=== PATIENT | female | born 1965 | race Caucasian/White ===

== ENCOUNTER 2016-02-14 17:56 | Emergency (ER) | payer OTHER ==
[~2016-02-14] VITALS: Ht 160 cm; Wt 79.4 kg
[~2016-02-14 17:56] MED LIST: ACETAMINOPHEN-1 EAC1 ORAL; ALEVE220 M2 PO; ANUSOL HC1 SUPP RECTAL; ATARAX25 MG ORAL; COLACE100 MG ORAL; CYCLOBENZAPRINE10 MG ORAL; ELOCON15 GM TP; IBUPROFEN600 MG ORAL; KEFLEX500 MG ORAL; MEDROL DOSEPAK4 MG ORAL; NAPROXEN500 M2 ORAL; POLYTRIM OP SOL10 ML OPHTHALM; TRAMADOL HCL50 MG ORAL
[2016-02-14] MEDS ORDERED: Norco 5mg/325mg tab ORAL ONE (19:00)
[2016-02-14] MEDS ORDERED: TRAMADOL HCL50 MG ORAL (19:22)
[2016-02-14 20:13] VITALS: BP 117/64
--- NOTE | 2016-02-14 22:51 | Emergency Room Report ---
History of Present Illness General Chief Complaint: Pain Source: Patient Present Illness HPI The patient is a 51-year-old female presenting with right foot pain. The patient was seen in this emergency department one week prior and diagnosed with ankle fracture. The patient was placed in a splint and was given a prescription for Motrin. The patient states that the pain has persisted and is an 8/10 dull ache. The patient admits to walking with a splint on and states that it has now become loose. Pt denies numbness/tingling of the extremity Allergies: Coded Allergies: No Known Allergies (Unverified , 05/18/13) Patient History Past Medical History: see triage record Pertinent Family History: none Now: No Reviewed Nursing Documentation: PMH: Agreed, PSxH: Agreed Nursing Documentation-PMH Past Medical History: No History, Except For Review of Systems All Other Systems: negative except mentioned in HPI Physical Exam Vital Signs Date Time Temp Pulse Resp B/P Pulse Ox O2 Delivery O2 Flow Rate FiO2 02/14/16 18:03 98.2 85 14 117/64 99 Room Air Sp02 EP Interpretation: reviewed, normal General Appearance: no apparent distress, alert, GCS 15, non-toxic Head: normocephalic, atraumatic Eyes: bilateral eye PERRL, bilateral eye normal inspection ENT: hearing grossly normal, normal pharynx, no angioedema, normal voice Neck: full range of motion, supple/symm/no masses Musculoskeletal: back normal, digits/nails normal, decreased range of motion - of ankle, swelling - over entire ankle, tender - TTP over calcaneous and ankle Neurologic: alert, oriented x3, responsive, motor strength/tone normal, sensory intact, speech normal Psychiatric: judgement/insight normal, memory normal, mood/affect normal, no suicidal/homicidal ideation Skin: normal color, no rash, warm/dry, well hydrated Procedures Splinting Splinting : Consent: Verbal Location: R leg Hand-Made Type: plaster Splint: poserior short - sugar tong Pre-Proc Neuro Vasc Exam: normal Post-Proc Neuro Vasc Exam: normal Patient Tolerated: Well Complications: None Medical Decision Making PA Attestation Dr. Pope is my supervising physician. Patient management was discussed with my supervising physician Diagnostic Impression: Primary Impression: Avulsion fracture of ankle ER Course The patient is a 51-year-old female presenting with right foot pain. Ddx considered include but not limited to sprain/strain, fracture, contusion PE: Vitals WNL. NAD. R foot: There is edema over the ankle. TTP over bilat malleoli and calcaneus. No discoloration. Limited AROM of ankle. full AROM of toes. DP pulse 2+. SILT. The patient was given Jennings for pain in the ER The splint was removed and a new splint was applied. The patient was also provided crutches and we'll no longer bear weight on the foot. The patient will follow up with primary care physician as soon as possible. ER precautions are given Last Vital Signs Date Time Temp Pulse Resp B/P Pulse Ox O2 Delivery O2 Flow Rate FiO2 02/14/16 20:13 85 14 117/64 99 Room Air 02/14/16 20:13 98.3 Status: improved Disposition: HOME, SELF-CARE Condition: Improved Scripts Tramadol Hcl* (ULTRAM*) 50 Mg Tablet 50 MG ORAL Q6H Y for For Pain, #12 TAB 0 Refills Prov: CARY EMANUEL 02/14/16 Referrals: EMPLOYEE [facility],REFERRIN (PCP) Patient Instructions: Ankle Fracture Additional Instructions: I discussed my findings with the patient. All questions and concerns have been answered. Treatment and medication compliance have been addressed. I advised the patient that they need to follow up with PMD in 3-5 days. Return to ED if pain remains or worsens, numbness or tingling occurs, new rash is noticed, fever is noticed, or if needed for any reason. Patient verbalized understanding of discharge instructions. CARY EMANUEL Feb 14, 2016 22:51
== END 2016-02-14 20:19 | disposition home or self-care (01) ==
LOC: EMR 19:15
DX: S82.891A Other fracture of right lower leg, initial encounter for closed fracture (principal); X58.XXXA Exposure to other specified factors, initial encounter; Y92.9 Unspecified place or not applicable; Y99.8 Other external cause status
CPT/HCPCS: 29515

== ENCOUNTER 2016-02-17 22:58 | Emergency (ER) | payer OTHER ==
[~2016-02-17] VITALS: Ht 157.5 cm; Wt 78.0 kg
[2016-02-17] MEDS ORDERED: NKM (23:14)
[2016-02-17] MEDS ORDERED: HYDROMORPHONE IV ONE (23:30)
[2016-02-17] MEDS ORDERED: NS IV ONE (23:30)
[2016-02-17] MEDS ORDERED: HYDROmorphone 1mg/ml Carpuject ONE (23:36)
[2016-02-17] MEDS ORDERED: NS 55ml IV ONE (23:40)
[2016-02-17 23:43] LABS: EOSINOPHILS % (AUTO) 2.6 % (0.0-3.0); LYMPHOCYTES % (AUTO) 42.4 % (20.0-45.0); MEAN CORPUSCULAR HEMOGLOBIN 29.4 PG (27.0-31.0); MEAN CORPUSCULAR HGB CONC 32.6 G/DL (32.0-36.0); MEAN CORPUSCULAR VOLUME 90 FL (80-99); MEAN PLATELET VOLUME 7.8 FL (6.5-10.1); MONOCYTES % (AUTO) 6.2 % (1.0-10.0); NEUTROPHILS % (AUTO) 47.8 % (45.0-75.0); PLATELET COUNT 248 K/UL (150-450); RED BLOOD COUNT 4.74 M/UL (4.20-5.40); RED CELL DISTRIBUTION WIDTH 11.6 % (11.6-14.8)
--- NOTE | 2016-02-17 23:55 | Emergency Room Report ---
History of Present Illness General Chief Complaint: Abdominal Pain Source: Patient Present Illness HPI Is a 50-year-old female with no significant past medical history. She presents with abdominal pain with profuse diarrhea for the last couple days. Pain is crampy and sharp. Pain is 10 out of 10. She felt nauseous but no vomiting. Nothing made it better and nothing made it worse. Denies any bloody diarrhea. Subjective fever and chills. No sick contact. Allergies: Coded Allergies: CODEINE (Verified Allergy, Unknown, vomiting, 02/17/16) Patient History Past Medical History: see triage record, old chart reviewed Past Surgical History: hysterectomy Pertinent Family History: none Social History: Denies: smoking Last Menstrual Period: n/a Now: No Immunizations: other Reviewed Nursing Documentation: PMH: Agreed, PSxH: Agreed Nursing Documentation-PMH Past Medical History: No History, Except For Review of Systems Eye: Denies: blurred vision, eye pain ENT: Denies: ear pain, nose congestion, throat swelling Respiratory: Denies: cough, shortness of breath Cardiovascular: Denies: chest pain, palpitations Gastrointestinal: Reports: abdominal pain, diarrhea, nausea, Denies: vomiting Musculoskeletal: Denies: back pain, joint pain Skin: Denies: rash Neurological: Denies: headache, numbness Endocrine: Denies: increased thirst, increased urine Hematologic/Lymphatic: Denies: easy bruising All Other Systems: negative except mentioned in HPI Physical Exam Vital Signs Date Time Temp Pulse Resp B/P Pulse Ox O2 Delivery O2 Flow Rate FiO2 02/17/16 23:04 98.2 80 16 123/70 95 Room Air vitals normal Sp02 EP Interpretation: reviewed, normal General Appearance: well appearing, no apparent distress, alert Head: normocephalic, atraumatic Eyes: bilateral eye EOMI, bilateral eye PERRL ENT: hearing grossly normal, normal pharynx Neck: full range of motion, supple, no meningismus Respiratory: chest non-tender, lungs clear, normal breath sounds Cardiovascular #1: regular rate, rhythm, no murmur Gastrointestinal: normal bowel sounds, no mass, no organomegaly, no bruit, non- distended, abnormal bowel sounds - Hyperactive, tenderness - diffuse Musculoskeletal: back normal, gait/station normal, normal range of motion Psychiatric: mood/affect normal Skin: warm/dry Medical Decision Making Diagnostic Impression: Primary Impression: Abdominal pain, vomiting, and diarrhea ER Course Patient presents with abdominal pain with nausea and diarrhea. Most likely a gastroenteritis that has been going through the community. Patient is feeling better now. No evidence of obstruction or acute abdomen. We'll discharge home. Lab Results Impression labs normal Last Vital Signs Date Time Temp Pulse Resp B/P Pulse Ox O2 Delivery O2 Flow Rate FiO2 02/17/16 23:04 98.2 80 16 123/70 95 Room Air Status: improved Disposition: HOME, SELF-CARE Condition: Stable Scripts Ondansetron (Zofran) 4 Mg Tablet 4 MG ORAL Q6H Y for Nausea & Vomiting, #10 TAB 0 Refills Prov: PIPPA SCHMID M.D. 02/18/16 Ibuprofen* (MOTRIN*) 600 Mg Tablet 600 MG ORAL THREE TIMES A DAY, #20 TAB 0 Refills Prov: PIPPA SCHMID M.D. 02/18/16 Referrals: EMPLOYEE [facility],REFERRIN (PCP) Additional Instructions: Followup with your DrLuther in 2-3 days. Push fluids. Return for increasing pain, fever, chills, or any concern. PIPPA SCHMID M.D. Feb 17, 2016 23:55
[2016-02-18 00:02] VITALS: BP 127/56
[2016-02-18 00:04] LABS: CARBON DIOXIDE 27 mEQ/L (20-30)
[2016-02-18 00:05] LABS: ALANINE AMINOTRANSFERASE 27 U/L (3-33); ALBUMIN/GLOBULIN RATIO 1.2 (1.0-2.7); ANION GAP 12 (5-15); ASPARTATE AMINO TRANSFERASE 19 U/L (5-40); CALCIUM 9.9 mg/dL (8.6-10.2); CHLORIDE 97 mEQ/L (98-107); CREATININE 0.9 mg/dL (0.5-0.9); GLOMERULAR FILTRATION RATE > 60 mL/min (>60); HEMOLYSIS 8; LIPASE 46 U/L (< 60); POTASSIUM 3.9 mEQ/L (3.4-4.9); SODIUM 136 mEQ/L (135-145); TOTAL PROTEIN 7.1 g/dL (6.6-8.7)
[2016-02-18 00:29] LABS: APPEARANCE,URINE CLEAR; KETONES,URINE NEGATIVE (NEGATIVE); LEUKOCYTE ESTERASE ,URINE NEGATIVE (NEGATIVE); NITRITE,URINE NEGATIVE (NEGATIVE); PH,URINE 7 (4.5-8.0); PROTEIN,URINE NEGATIVE (NEGATIVE); UROBILINOGEN,URINE NORMAL MG/DL (0.0-1.0)
[2016-02-18] MEDS ORDERED: IBUPROFEN600 MG ORAL (00:41)
[2016-02-18] MEDS ORDERED: ZOFRAN4 MG ORAL (00:41)
[2016-02-18] MEDS ORDERED: Ketorolac 30mg Inj IV ONE (01:00)
[2016-02-18 01:38] VITALS: BP 127/69
[2016-02-18 02:03] VITALS: BP 127/69
--- NOTE | 2016-02-19 10:29 | Diagnostic Imaging Report ---
Indication: Abdominal pain Technique: Continuous helical transaxial imaging of the abdomen and pelvis was obtained from the lung bases to the pubic symphysis during intravenous contrast administration. Coronal 2-D reformats were also obtained. Study obtained in a Siemens sensation [address] Total Dose length Product (DLP): [address] Dose Index Volume (CTDIvol): 25 mGy Comparison: None Findings: Minimal posterior basilar atelectasis demonstrated. Liver is hypodense consistent with fatty infiltration. Spleen is mildly prominent. Gallbladder, pancreas, adrenal glands, kidneys are unremarkable. There is no free fluid or free air. Normal appendix demonstrated. Diverticula noted within the colon. No evidence of bowel obstruction. Impression: Fatty liver. Prominent spleen [facility] has communicated the preliminary results to the Emergency Department. Their findings are largely concordant with this report. The CT scanner at [facility] is accredited by the [employer] and the scans are performed using protocols designed to limit radiation exposure to as low as reasonably achievable to attain images of sufficient resolution adequate for diagnostic evaluation.
== END 2016-02-18 02:15 | disposition home or self-care (01) ==
LOC: EMR 23:39
DX: R10.9 Unspecified abdominal pain (principal); R11.10 Vomiting, unspecified; R19.7 Diarrhea, unspecified; Z88.6 Allergy status to analgesic agent; Z90.710 Acquired absence of both cervix and uterus
CPT/HCPCS: 36415; 74177; 80053; 81003; 83690; 85025; 96361; 96374; 96375; 99284; J1170; J1885; J2405; Q9967

== ENCOUNTER 2016-09-19 18:33 | Emergency (ER) | payer OTHER ==
[~2016-09-19] VITALS: Ht 157.5 cm; Wt 77.1 kg
[~2016-09-19 18:33] MED LIST changes: +NKM; +ZOFRAN4 MG ORAL
[2016-09-19 18:55] VITALS: BP 135/60
[2016-09-19] MEDS ORDERED: Morphine Sulfate 4mg/ml Inj IVP ONE (19:15)
[2016-09-19] MEDS ORDERED: Ketorolac 30mg Inj IV ONE (19:15)
[2016-09-19 20:10] LABS: BASOPHILS % (AUTO) 1.1 % (0.0-2.0); EOSINOPHILS % (AUTO) 2.1 % (0.0-3.0); MEAN CORPUSCULAR HEMOGLOBIN 31.2 PG (27.0-31.0); MEAN CORPUSCULAR HGB CONC 34.5 G/DL (32.0-36.0); MEAN CORPUSCULAR VOLUME 90 FL (80-99); MEAN PLATELET VOLUME 8.8 FL (6.5-10.1); MONOCYTES % (AUTO) 6.9 % (1.0-10.0); PLATELET COUNT 202 K/UL (150-450); RED BLOOD COUNT 4.28 M/UL (4.20-5.40); RED CELL DISTRIBUTION WIDTH 11.3 % (11.6-14.8); WHITE BLOOD COUNT 7.3 K/UL (4.8-10.8)
[2016-09-19 20:24] LABS: TROPONIN I < 0.30 ng/mL (<=0.30)
[2016-09-19 20:27] LABS: ALANINE AMINOTRANSFERASE 44 U/L (3-33); ALBUMIN/GLOBULIN RATIO 1.6 (1.0-2.7); ANION GAP 11 (5-15); ASPARTATE AMINO TRANSFERASE 28 U/L (5-40); CALCIUM 9.7 mg/dL (8.6-10.2); CARBON DIOXIDE 26 mEQ/L (20-30); CHLORIDE 102 mEQ/L (98-107); CREATININE 0.8 mg/dL (0.5-0.9); GLOMERULAR FILTRATION RATE > 60 mL/min (>60); HEMOLYSIS 8; POTASSIUM 4.2 mEQ/L (3.4-4.9); SODIUM 139 mEQ/L (135-145); TOTAL PROTEIN 6.9 g/dL (6.6-8.7)
[2016-09-19 20:38] LABS: CKMB 6.5 ng/mL (< 3.8)
[2016-09-19] MEDS ORDERED: PREDNISONE20 MG ORAL (20:50)
[2016-09-19] MEDS ORDERED: CYCLOBENZAPRINE10 MG ORAL (20:50)
[2016-09-19] MEDS ORDERED: IBUPROFEN600 MG ORAL (20:50)
[2016-09-19] MEDS ORDERED: DIPHENHYDRAMINE25 M1 ORAL (20:50)
[2016-09-19 21:04] VITALS: BP 122/74
--- NOTE | 2016-09-19 22:43 | Emergency Room Report ---
History of Present Illness General Chief Complaint: Pain Source: Patient, Medical Record Present Illness HPI 51-year-old female presents ED complaining of right-sided back pain x3 hours. Notes pain to the right-sided ribs radiating to the back. 10 out of 10. Sharp. Notes pain with deep breaths. Denies recent trauma. Denies chest pain or shortness of breath. Patient also notes a rash to her chest unsure how long it has been there. It is itchy. Denies any known food or drug allergies. No other relieving or relieving factors. Denies any other associated symptoms Allergies: Coded Allergies: CODEINE (Verified Allergy, Unknown, vomiting, 02/17/16) Patient History Past Medical History: none Past Surgical History: none Pertinent Family History: none Social History: Denies: alcohol use, drug use, smoking Now: No Immunizations: UTD Reviewed Nursing Documentation: PMH: Agreed, PSxH: Agreed Nursing Documentation-PMH Past Medical History: No History, Except For Review of Systems All Other Systems: negative except mentioned in HPI Physical Exam Vital Signs Date Time Temp Pulse Resp B/P Pulse Ox O2 Delivery O2 Flow Rate FiO2 09/19/16 18:40 97.9 69 20 120/54 97 Room Air Sp02 EP Interpretation: reviewed, normal General Appearance: no apparent distress, alert, GCS 15, non-toxic Head: normocephalic, atraumatic Eyes: bilateral eye PERRL, bilateral eye normal inspection ENT: hearing grossly normal, normal pharynx, no angioedema, normal voice Neck: full range of motion, supple/symm/no masses Respiratory: lungs clear, normal breath sounds, speaking full sentences, other - R sided posterior rib pain Cardiovascular #1: regular rate, rhythm, no edema Cardiovascular #2: 2+ carotid (R), 2+ carotid (L), 2+ radial (R), 2+ radial (L) , 2+ dorsalis pedis (R), 2+ dorsalis pedis (L) Gastrointestinal: normal bowel sounds, non tender, soft, non-distended, no guarding, no rebound Rectal: deferred Genitourinary: normal inspection, no CVA tenderness Musculoskeletal: back normal, gait/station normal, normal range of motion, non- tender Neurologic: alert, oriented x3, responsive, motor strength/tone normal, sensory intact, speech normal Psychiatric: judgement/insight normal, memory normal, mood/affect normal, no suicidal/homicidal ideation Reflexes: 3+ bicep (R), 3+ bicep (L), 3+ tricep (R), 3+ tricep (L), 3+ knee (R) , 3+ knee (L) Skin: normal color, warm/dry, well hydrated, other - urticarial rash noted to midsternal chest Lymphatic: no adenopathy Medical Decision Making Diagnostic Impression: Primary Impression: Rash Additional Impression: Chest wall pain ER Course Hospital Course 51-year-old female presents ED complaining of reproducible chest wall pain Differential diagnoses include: Rib fracture, RI/unstable angina, contusion, muscle strain Clinical course Patient placed on stretcher. After initial history and physical I ordered labs , EKG, chest x-ray, pain meds. labs reviewed- all electrolytes normal, troponins negative, no leukocytosis, hemoglobin/hematocrit stable Chest x-ray-no cardiomegaly, no rib fracture, no pneumothorax, no acute process EKG - NSR, no acute changes interpreted by me clinical findings consistent with muscle strain. Upon reassessment patient states pain is improved. The rash appears urticarial, will treat as allergic reaction I. I feel this is a highly complex case requiring extensive working including EKG/Rhythm strip, Xray/CT/US, Blood/urine lab work, repeat exams while in ED, and administration of strong opiates/narcotics for pain control, admission to hospital or close patient follow up. Diagnosis - chest wall pain, rash Stable and discharged to home with prescription for Motrin, flexeril, benedryl, prednisone. Instructed to followup with PMD. Return to ED if symptoms recur or worsen Labs Test 09/19/16 19:15 White Blood Count 7.3 K/UL (4.8-10.8) Red Blood Count 4.28 M/UL (4.20-5.40) Hemoglobin 13.3 G/DL (12.0-16.0) Hematocrit 38.6 % (37.0-47.0) Mean Corpuscular Volume 90 FL (80-99) Mean Corpuscular Hemoglobin 31.2 PG (27.0-31.0) Mean Corpuscular Hemoglobin Concent 34.5 G/DL (32.0-36.0) Red Cell Distribution Width 11.3 % (11.6-14.8) Platelet Count 202 K/UL (150-450) Mean Platelet Volume 8.8 FL (6.5-10.1) Neutrophils (%) (Auto) 46.0 % (45.0-75.0) Lymphocytes (%) (Auto) 44.0 % (20.0-45.0) Monocytes (%) (Auto) 6.9 % (1.0-10.0) Eosinophils (%) (Auto) 2.1 % (0.0-3.0) Basophils (%) (Auto) 1.1 % (0.0-2.0) Sodium Level 139 mEQ/L (135-145) Potassium Level 4.2 mEQ/L (3.4-4.9) Chloride Level 102 mEQ/L (98-107) Carbon Dioxide Level 26 mEQ/L (20-30) Anion Gap 11 (5-15) Blood Urea Nitrogen 16 mg/dL (7-23) Creatinine 0.8 mg/dL (0.5-0.9) Estimat Glomerular Filtration Rate > 60 mL/min (>60) Glucose Level 98 mg/dL (74-106) Calcium Level 9.7 mg/dL (8.6-10.2) Total Bilirubin 0.3 mg/dL (0.0-1.2) Aspartate Amino Transf (AST/SGOT) 28 U/L (5-40) Alanine Aminotransferase (ALT/SGPT) 44 U/L (3-33) Alkaline Phosphatase 57 U/L (35-104) Total Creatine Kinase 291 U/L (26-140) Creatine Kinase MB 6.5 ng/mL (< 3.8) Creatine Kinase MB Relative Index 2.2 Troponin I < 0.30 ng/mL (<=0.30) Total Protein 6.9 g/dL (6.6-8.7) Albumin 4.3 g/dL (3.5-5.2) Globulin 2.6 g/dL Albumin/Globulin Ratio 1.6 (1.0-2.7) EKG Diagnostic Results Rate: normal Rhythm: NSR ST Segments: no acute changes ASA given to the pt in ED: No Rhythm Strip Diag. Results EP Interpretation: yes Rhythm: NSR, no PVC's, no ectopy Chest X-Ray Diagnostic Results Chest X-Ray Diagnostic Results : Chest X-Ray Ordered: Yes # of Views/Limited/Complete: 1 View Indication: Chest Pain EP Interpretation: Yes Interpretation: no consolidation, no effusion, no pneumothorax, no acute cardiopulmonary disease Impression: No acute disease Interpreting ER Provider: Electronically signed by Manuelito Lugo MD Last Vital Signs Date Time Temp Pulse Resp B/P Pulse Ox O2 Delivery O2 Flow Rate FiO2 09/19/16 21:04 67 14 122/74 100 Room Air 09/19/16 18:55 97.9 Status: improved Disposition: HOME, SELF-CARE Condition: Stable Scripts Diphenhydramine Hcl* (DIPHENHYDRAMINE HCL*) 25 Mg Capsule 25 MG ORAL Q6H Y for Itching, #30 CAP 0 Refills Prov: MANUELITO LUGO M.D. 09/19/16 Prednisone* (PREDNISONE*) 20 Mg Tablet 40 MG ORAL DAILY, #10 TAB Prov: MANUELITO LUGO M.D. 09/19/16 Cyclobenzaprine Hcl* (FLEXERIL*) 10 Mg Tablet 10 MG ORAL TID Y for Muscle Spasm, #20 TAB Prov: MANUELITO LUGO M.D. 09/19/16 Ibuprofen* (MOTRIN*) 600 Mg Tablet 600 MG ORAL Q8H Y for For Pain, #30 TAB 0 Refills Prov: MANUELITO LUGO M.D. 09/19/16 Referrals: EMPLOYEE [facility],SARAHY (PCP) Patient Instructions: Chest Wall Pain, [id number] MANUELITO LUGO M.D. Sep 19, 2016 22:43
--- NOTE | 2016-09-20 12:38 | Diagnostic Imaging Report ---
Indication: Dyspnea Comparison: 02/04/14 A single view chest radiograph was obtained. Findings: Cardiomediastinal appearance is within normal limits for age. Pulmonary vascularity is appropriate. The diaphragmatic contour is smooth and costophrenic angles are sharp. No pleural effusions are identified. The bones are unremarkable. Impression: No acute findings
== END 2016-09-19 21:07 | disposition home or self-care (01) ==
LOC: EMR 19:20
DX: R21 Rash and other nonspecific skin eruption (principal); R07.89 Other chest pain; Z88.6 Allergy status to analgesic agent
CPT/HCPCS: 36415; 71010; 80053; 82550; 82553; 84484; 85025; 93005; 96374; 96375; 99284; J1885; J2270; J2405

== ENCOUNTER 2016-09-24 21:50 | Emergency (ER) | payer OTHER ==
[~2016-09-24] VITALS: Ht 157.5 cm; Wt 77.1 kg
[~2016-09-24 21:50] MED LIST changes: +DIPHENHYDRAMINE25 M1 ORAL; +PREDNISONE20 MG ORAL
[2016-09-24 22:25] VITALS: BP 130/74
[2016-09-24] MEDS ORDERED: KEFLEX500 MG ORAL (22:40)
[2016-09-24] MEDS ORDERED: KENALOG 0.5% CR15 GM APPLIC (22:40)
--- NOTE | 2016-09-25 00:03 | Emergency Room Report ---
History of Present Illness General Chief Complaint: Skin Rash/Abscess Source: Patient Present Illness HPI 51-year-old female presents to ER complaining of rash. States she was seen here a few days ago for chest wall pain but states she had a rash at that time. Evaluated by the ER physician and was prescribed Benadryl and prednisone. States the rash has since persisted. Has gotten worse. Patient is very itchy. Denies any pain. notes rash over her chest and on bilateral legs. Denies any recent travel or sick contacts. Denies any fevers or chills. Denies any known food allergies. No aggravating relieving factors. Denies any other associated symptoms Allergies: Coded Allergies: CODEINE (Verified Allergy, Unknown, vomiting, 02/17/16) Patient History Past Medical History: none Past Surgical History: none Pertinent Family History: none Social History: Denies: alcohol use, drug use, smoking Last Menstrual Period: NONE Now: No Immunizations: UTD Reviewed Nursing Documentation: PMH: Agreed, PSxH: Agreed Nursing Documentation-PMH Past Medical History: No Stated History Review of Systems All Other Systems: negative except mentioned in HPI Physical Exam Vital Signs Date Time Temp Pulse Resp B/P Pulse Ox O2 Delivery O2 Flow Rate FiO2 09/24/16 22:15 98.2 74 18 132/75 98 Room Air Sp02 EP Interpretation: reviewed, normal General Appearance: no apparent distress, alert, GCS 15, non-toxic Head: normocephalic, atraumatic Eyes: bilateral eye PERRL, bilateral eye normal inspection ENT: hearing grossly normal, normal pharynx, no angioedema, normal voice Neck: full range of motion, supple/symm/no masses Respiratory: chest non-tender, lungs clear, normal breath sounds, speaking full sentences Cardiovascular #1: regular rate, rhythm, no edema Cardiovascular #2: 2+ carotid (R), 2+ carotid (L), 2+ radial (R), 2+ radial (L) , 2+ dorsalis pedis (R), 2+ dorsalis pedis (L) Gastrointestinal: normal bowel sounds, non tender, soft, non-distended, no guarding, no rebound Rectal: deferred Genitourinary: normal inspection, no CVA tenderness Musculoskeletal: back normal, gait/station normal, normal range of motion, non- tender Neurologic: alert, oriented x3, responsive, motor strength/tone normal, sensory intact, speech normal Psychiatric: judgement/insight normal, memory normal, mood/affect normal, no suicidal/homicidal ideation Reflexes: 3+ bicep (R), 3+ bicep (L), 3+ tricep (R), 3+ tricep (L), 3+ knee (R) , 3+ knee (L) Skin: normal color, warm/dry, well hydrated, wu - erythematous rash noted over anterior chest. also noted to bilateral legs Lymphatic: no adenopathy Medical Decision Making Diagnostic Impression: Primary Impression: Rash ER Course Hospital Course 51-year-old female presents to ED with rash to chest and legs Differential diagnoses include: Cellulitis, dermatitis, insect bite, abscess Clinical course Patient placed on stretcher. After initial history, physical exam reveals a female in no acute distress. On exam there are diffuse erythematous rash noted to be anterior chest and spots noted to bilateral shins. I evaluated this patient last week. Patient was here for reproducible chest wall pain but also had this rash of the chest. At that time it was not that significant. There were some erythematous urticarial spots noted. I treated as allergic reaction and prescribed Benadryl and steroids We will prescribe antibiotics and had triamcinolone. Recommend followup with dermatology Diagnosis - rash stable and discharged to home with prescription for triamcinolone, Keflex. Instructed to followup with PMD. Instructed return to ED if symptoms recur or worsen Last Vital Signs Date Time Temp Pulse Resp B/P Pulse Ox O2 Delivery O2 Flow Rate FiO2 09/24/16 22:45 98.4 81 17 130/74 99 Room Air Status: improved Disposition: HOME, SELF-CARE Condition: Stable Scripts Cephalexin* (KEFLEX*) 500 Mg Capsule 500 MG ORAL Q6H, #28 CAP 0 Refills Prov: JONATHAN NAJERA M.D. 09/24/16 Triamcinolone Acet (Triamcinolone Acetonide) 15 Gm Cream..g. 15 GM APPLIC TID, #15 GM Prov: JONATHAN NAJERA M.D. 09/24/16 Referrals: EMPLOYEE [facility],REFERRIN (PCP) Patient Instructions: Rash, Contact Dermatitis, [id number] JONATHAN NAJERA M.D. Sep 25, 2016 00:03
== END 2016-09-24 22:45 | disposition home or self-care (01) ==
LOC: EMR 22:32
DX: R21 Rash and other nonspecific skin eruption (principal); Z88.6 Allergy status to analgesic agent
CPT/HCPCS: 99284

== ENCOUNTER 2016-11-13 14:51 | Emergency (ER) | payer OTHER ==
[~2016-11-13] VITALS: Ht 157.5 cm; Wt 79.4 kg
[~2016-11-13 14:51] MED LIST changes: +KENALOG 0.5% CR15 GM APPLIC
[2016-11-13 14:53] VITALS: BP 131/77
[2016-11-13] MEDS ORDERED: TYLENOL EXTRA500 MG ORAL (15:09)
[2016-11-13 16:17] LABS: BASOPHILS % (AUTO) 1.2 % (0.0-2.0); EOSINOPHILS % (AUTO) 1.7 % (0.0-3.0); LYMPHOCYTES % (AUTO) 48.1 % (20.0-45.0); MEAN CORPUSCULAR HEMOGLOBIN 29.8 PG (27.0-31.0); MEAN CORPUSCULAR HGB CONC 32.9 G/DL (32.0-36.0); MEAN CORPUSCULAR VOLUME 91 FL (80-99); MEAN PLATELET VOLUME 9.3 FL (6.5-10.1); MONOCYTES % (AUTO) 6.6 % (1.0-10.0); NEUTROPHILS % (AUTO) 42.4 % (45.0-75.0); PLATELET COUNT 195 K/UL (150-450); RED BLOOD COUNT 4.52 M/UL (4.20-5.40); RED CELL DISTRIBUTION WIDTH 11.3 % (11.6-14.8); WHITE BLOOD COUNT 7.3 K/UL (4.8-10.8)
[2016-11-13 16:27] LABS: APPEARANCE,URINE CLEAR; KETONES,URINE NEGATIVE (NEGATIVE); LEUKOCYTE ESTERASE ,URINE NEGATIVE (NEGATIVE); NITRITE,URINE NEGATIVE (NEGATIVE); PH,URINE 5 (4.5-8.0); PROTEIN,URINE NEGATIVE (NEGATIVE); UROBILINOGEN,URINE NORMAL MG/DL (0.0-1.0)
[2016-11-13 16:30] LABS: PROTHROMBIN TIME 10.2 SEC (9.30-11.50)
[2016-11-13 16:38] LABS: ALBUMIN/GLOBULIN RATIO 1.6 (1.0-2.7); CALCIUM 9.5 mg/dL (8.6-10.2); POTASSIUM 4.5 mEQ/L (3.4-4.9); TOTAL PROTEIN 6.7 g/dL (6.6-8.7)
[2016-11-13] MEDS ORDERED: Ketorolac 30mg Inj IV ONE (18:00)
[2016-11-13] MEDS ORDERED: MIRALAX119 GM PO (18:06)
[2016-11-13] MEDS ORDERED: NAPROSYN500 M1 ORAL (18:06)
[2016-11-13 18:12] VITALS: BP 126/81
--- NOTE | 2016-11-13 21:49 | Emergency Room Report ---
History of Present Illness General Chief Complaint: Abdominal Pain Source: Patient Present Illness HPI The patient is a 50-year-old female who denies any medical history presenting for abdominal pain. She states that this began today and is described as an 8/ 10 dull ache primarily to the right lower abdomen. She states that she has had constipation on and off for the past week. She denies any other symptoms including nausea, vomiting, fever, chills, back pain, dysuria Allergies: Coded Allergies: CODEINE (Verified Allergy, Unknown, vomiting, 02/17/16) Patient History Past Medical History: see triage record Pertinent Family History: none Reviewed Nursing Documentation: PMH: Agreed, PSxH: Agreed Review of Systems All Other Systems: negative except mentioned in HPI Physical Exam Vital Signs Date Time Temp Pulse Resp B/P (MAP) Pulse Ox O2 Delivery O2 Flow Rate FiO2 11/13/16 14:53 97.5 71 20 131/77 99 Room Air Sp02 EP Interpretation: reviewed, normal General Appearance: no apparent distress, alert, GCS 15, non-toxic Head: normocephalic, atraumatic Eyes: bilateral eye normal inspection, bilateral eye PERRL Respiratory: chest non-tender, lungs clear, normal breath sounds, speaking full sentences Cardiovascular #1: regular rate, rhythm, no edema Gastrointestinal: tenderness - TTP across the RLQ, suprapubic, and LLQ Genitourinary: normal inspection, no CVA tenderness Musculoskeletal: back normal, gait/station normal, normal range of motion, non- tender Neurologic: alert, oriented x3, responsive, motor strength/tone normal, sensory intact, speech normal Psychiatric: judgement/insight normal, memory normal, mood/affect normal, no suicidal/homicidal ideation Skin: normal color, no rash, warm/dry, well hydrated Medical Decision Making PA Attestation Dr. Pope is my supervising physician. Patient management was discussed with my supervising physician Diagnostic Impression: Primary Impression: Abdominal pain Qualified Codes: R10.30 - Lower abdominal pain, unspecified Additional Impressions: Lung nodule Constipation Qualified Codes: K59.00 - Constipation, unspecified ER Course The patient is a 51-year-old female presenting for abdominal pain Differential diagnoses considered include but not limited to gastritis, constipation, diverticulitis, appendicitis, UTI Physical exam: Afebrile. No apparent distress Lungs are clear to auscultation bilaterally Abdomen is soft. Normal bowel sounds. There is tender to palpation across the lower abdomen. No localized tenderness. Nondistended. No hernia Labs are unremarkable. CT scan shows no acute findings There was an incidental finding of an 8 mm nodule in the left lower lobe. Patient was informed of this and needs to follow up with her primary doctor. She'll be treated for constipation. ER precautions are given Last Vital Signs Date Time Temp Pulse Resp B/P (MAP) Pulse Ox O2 Delivery O2 Flow Rate FiO2 11/13/16 18:12 97.5 76 17 126/81 100 Room Air Status: improved Disposition: HOME, SELF-CARE Condition: Improved Scripts Naproxen* (NAPROSYN*) 500 Mg Tablet 500 MG ORAL TWICE A DAY, #30 TAB Prov: CARY EMANUEL 11/13/16 Polyethylene Glycol 3350 (MIRALAX) 119 Gm Powder 17 GM PO DAILY, #119 GM Prov: CARY EMANUEL 11/13/16 Patient Instructions: Abdominal Pain, Adult Additional Instructions: I discussed my findings with the patient. All questions and concerns have been answered. Treatment and medication compliance have been addressed. I advised the patient that they need to follow up with primary doctor in 3-[address] scan shows 8mm nodule on the Left lower lobe of your lung. You will need to follow up with your doctor and have additional testing done. Return to ED if symptoms worsen, new symptoms arise, or if needed for any reason. Patient verbalized understanding of discharge instructions. CARY EMANUEL Nov 13, 2016 21:49
--- NOTE | 2016-11-14 09:50 | Diagnostic Imaging Report ---
Indication: Abdominal pain Technique: Continuous helical transaxial imaging of the abdomen and pelvis was obtained from the lung bases to the pubic symphysis during intravenous contrast administration. Coronal 2-D reformats were also obtained. Study obtained in a Siemens sensation [address] Total Dose length Product (DLP): [address] Dose Index Volume (CTDIvol): 18.16, 0.15 mGy Comparison: 02/18/16 Findings: There is moderate low-attenuation of the liver consistent with fatty infiltration. Pancreas, gallbladder, spleen, adrenal glands are unremarkable. There is a tiny cyst in the left kidney. There is no hydronephrosis. Normal appendix demonstrated. Diverticulosis of the colon demonstrated. There is no evidence of diverticulitis, free fluid, free air identified on this study. Uterus is absent. Urinary bladder is unremarkable in appearance. Small nodule noted at the left lung base measuring about 6-7 mm. Further evaluation in 6 months recommended. Impression: Moderate fatty liver. Normal appendix Diverticulosis of the colon. Status post hysterectomy. Tiny left renal cyst Small lung nodule. Suggest 6 month followup per Fleischner Society criteria. The CT scanner at [facility] is accredited by the [employer] and the scans are performed using dose optimization techniques as appropriate to a performed exam including Automatic Exposure control.
== END 2016-11-13 18:13 | disposition home or self-care (01) ==
LOC: EMR 17:00
DX: R10.9 Unspecified abdominal pain (principal); R91.8 Other nonspecific abnormal finding of lung field; K59.00 Constipation, unspecified; Z88.6 Allergy status to analgesic agent
CPT/HCPCS: 36415; 74177; 80053; 81003; 83690; 85025; 85610; 85730; 96374; 99284; J1885; Q9967

== ENCOUNTER 2017-02-19 19:42 | Emergency (ER) | payer OTHER ==
[~2017-02-19] VITALS: Ht 157.5 cm; Wt 79.4 kg
[~2017-02-19 19:42] MED LIST changes: +MIRALAX119 GM PO; +NAPROSYN500 M1 ORAL; +TYLENOL EXTRA500 MG ORAL
[2017-02-19 20:10] VITALS: BP 128/80
[2017-02-19] MEDS ORDERED: KEFLEX500 MG ORAL (20:26)
[2017-02-19 20:35] VITALS: BP 128/80
--- NOTE | 2017-02-20 14:34 | Emergency Room Report ---
History of Present Illness General Chief Complaint: Eye Problems Source: Patient Present Illness HPI 52 yo F presents to ED c/o R eye pain x 3 days. notes swelling, pain. 5/10 pain, throbbing, nonradiating. denies any discharge. denies any photophobia, blurry vision. No other aggravating factors, denies any other associated symptoms. Allergies: Coded Allergies: CODEINE (Verified Allergy, Unknown, vomiting, 02/17/16) Patient History Past Medical History: none Past Surgical History: none Pertinent Family History: none Social History: Denies: smoking, alcohol use, drug use Last Menstrual Period: menopause Now: No Immunizations: UTD Reviewed Nursing Documentation: PMH: Agreed, PSxH: Agreed Review of Systems All Other Systems: negative except mentioned in HPI Physical Exam Vital Signs Date Time Temp Pulse Resp B/P (MAP) Pulse Ox O2 Delivery O2 Flow Rate FiO2 02/19/17 19:58 98.4 66 18 128/80 96 Room Air Sp02 EP Interpretation: reviewed, normal General Appearance: no apparent distress, alert, GCS 15, non-toxic Head: normocephalic Eyes: bilateral eye normal inspection, bilateral eye PERRL ENT: normal ENT inspection Neck: normal inspection Respiratory: normal inspection Cardiovascular #1: normal inspection Gastrointestinal: normal inspection Rectal: deferred Genitourinary: no CVA tenderness Musculoskeletal: back normal Neurologic: alert, oriented x3, responsive, motor strength/tone normal, sensory intact, speech normal Psychiatric: normal inspection Skin: other - nodular swelling to R eyelid. Lymphatic: normal inspection Medical Decision Making Diagnostic Impression: Primary Impression: Stye Qualified Codes: H00.011 - Hordeolum externum right upper eyelid ER Course Hospital Course 52-year-old female presents to ED with R eye pain, feel something in his eye Differential diagnoses include: conjunctivitis, traumatic iritis, foreign body, corneal abrasion Clinical course Patient placed on stretcher. After initial history and physical exam reveals a nodular swellign to the R upper eyelid. minimal swelling noted. no discharge. no induration. ocular exam unremarkable. consistent with stye Diagnosis - stye Stable and discharged to home with prescription for Keflex. Warm compresses. Followup with PMD/Optho. Return to ED if symptoms recur or worsen Last Vital Signs Date Time Temp Pulse Resp B/P (MAP) Pulse Ox O2 Delivery O2 Flow Rate FiO2 02/19/17 20:35 98.4 66 18 128/80 96 Room Air Status: improved Disposition: HOME, SELF-CARE Condition: Stable Scripts Cephalexin* (KEFLEX*) 500 Mg Capsule 500 MG ORAL Q6H, #28 CAP 0 Refills Prov: JONATHAN NAJERA M.D. 02/19/17 Referrals: [employer] [facility],REFERRIN (PCP) Patient Instructions: JONATHAN Lu M.D. Feb 20, 2017 14:34
== END 2017-02-19 20:45 | disposition home or self-care (01) ==
LOC: EMR 20:36
DX: H00.011 Hordeolum externum right upper eyelid (principal)
CPT/HCPCS: 99283

== ENCOUNTER 2019-03-24 21:46 | Emergency (ER) | payer OTHER ==
[~2019-03-24] VITALS: Ht 157.5 cm; Wt 74.8 kg
[2019-03-24 22:00] VITALS: BP 130/70
--- NOTE | 2019-03-24 22:00 | NUR ---
ED Nurse Note: PT walked in to ED for left sided upper back pain x 3days. denies injury or fall.
[2019-03-24] MEDS ORDERED: IBUPROFEN600 MG ORAL (22:19)
[2019-03-24] MEDS ORDERED: LIDODERM700 M1 TOPIC (22:19)
[2019-03-24] MEDS ORDERED: ROBAXIN-750750 MG PO (22:19)
[2019-03-24] MEDS ORDERED: Ketorolac 30mg Inj IM ONE (22:30)
[2019-03-24] MEDS ORDERED: Methocarbamol 750mg tab ORAL ONE (22:30)
--- NOTE | 2019-03-24 22:36 | NUR ---
ER DISCHARGE NOTE: Patient is cleared to be discharged per ERMD, pt is aox4, on room air, with stable vital signs. pt was given dc and prescription instructions, pt was able to verbalize understanding, pt id band removed without complications. pt is able to ambulate with steady gait. pt took all belongings.
--- NOTE | 2019-03-27 18:24 | Emergency Room Report ---
History of Present Illness General Chief Complaint: Back Pain-No Injury Source: Patient Present Illness HPI Disclaimer: Please note that this report is being documented using DRAGON technology. This can lead to erroneous entry secondary to incorrect interpretation by the dictating instrument. HPI: 54-year-old female presents complaining of left-sided back pain. No injuries reported. Patient states symptoms have been worsening over the past few days. Currently 10/10 and localized in the left side. Prior history of spasm. Pain is centered around the left scapula. No pain no in the cervical thoracic or lumbosacral midline. No history of spinal surgery. Denies numbness , tingling, limitation to range of motion in the extremities. Allergies: Coded Allergies: CODEINE (Verified Allergy, Unknown, vomiting, 02/17/16) Patient History Now: No Review of Systems All Other Systems: negative except mentioned in HPI Physical Exam Vital Signs Date Time Temp Pulse Resp B/P (MAP) Pulse Ox O2 Delivery O2 Flow Rate FiO2 03/24/19 21:51 97.3 68 22 134/68 (90) 92 Room Air General: Awake and alert, no acute distress HEENT: NC/AT. EOMI. Resp: Normal work of breathing MSK: Normal tone and bulk. Moving all extremities. No obvious deformity. Neuro: Awake and alert. Mentating appropriately Back: No tenderness or step-offs in the cervical, thoracic or lumbosacral spine. Mild left-sided paraspinal tenderness. Tenderness over the left trapezius without obvious trigger point and tenderness just below the left scapula. Medical Decision Making Diagnostic Impression: Primary Impression: Back spasm ER Course 54-year-old female presenting for evaluation of left-sided back pain several days duration without focal neuro signs or trauma. Patient's history and physical exam consistent with spasm. She was treated symptomatically with Toradol, Robaxin and apply lidocaine patches. Noted significant improvement in her symptoms. Will discharge on Motrin, continue lidocaine patches and Robaxin. Does not require emergent labs or imaging at this time. She is also provided with instructions on stretching, heat therapy and instructed to follow- up with her PMD. Discussed reasons to return to the emergency department. Last Vital Signs Date Time Temp Pulse Resp B/P (MAP) Pulse Ox O2 Delivery O2 Flow Rate FiO2 03/24/19 22:36 97.8 84 18 122/84 97 Room Air Disposition: HOME, SELF-CARE Condition: Stable Scripts Methocarbamol* (ROBAXIN-750*) 750 Mg Tablet 750 MG PO QID, #28 TAB 0 Refills Prov: Flavio Walter MD 03/24/19 Lidocaine Patch* (Lidoderm Patch*) 1 Each Adh..patch 1 PATCH TOPIC DAILY, #7 PATCH 0 Refills Patch(es) may remain in place for up to 12 hours in any 24-hour period. Prov: Flavio Walter MD 03/24/19 Ibuprofen* (MOTRIN*) 600 Mg Tablet 600 MG ORAL Q8H PRN for For Pain, #30 TAB 0 Refills Prov: Flavio Walter MD 03/24/19 Referrals: NON PHYSICIAN (PCP) [facility] Open 24 hour /7 days a week by Appointment Only [address] [facility] [address] [facility] Patient Instructions: Heat Therapy Additional Instructions: Use the medication as prescribed for treatment of your back spasms. Continue to stretch, soak in warm baths and perform exercises to loosen up the muscles in the back. Follow-up with your primary doctor. Return with any new or worsening symptoms. Flavio Walter MD Mar 27, 2019 18:24
== END 2019-03-24 22:36 | disposition home or self-care (01) ==
LOC: EMR 22:15
DX: M62.830 Muscle spasm of back (principal); Z88.6 Allergy status to analgesic agent
CPT/HCPCS: 96372; J1885; Z7502; 99283

== ENCOUNTER 2019-04-06 17:54 | Emergency (ER) | payer OTHER ==
[~2019-04-06] VITALS: Ht 157.5 cm; Wt 77.1 kg
[~2019-04-06 17:54] MED LIST changes: +LIDODERM700 M1 TOPIC; +ROBAXIN-750750 MG PO
[2019-04-06 18:00] VITALS: BP 122/76
--- NOTE | 2019-04-06 18:00 | NUR ---
ED Nurse Note: Pt walked into ED w/ c/o earache L ear. Pt has pain 10/10 on ear. Pt is alert and orientedx4, ambulatory. Pt denies numbness tingling, nausea or vomiting. Pt has been seen by PA and patient is sitting in bed.
--- NOTE | 2019-04-06 18:31 | Emergency Room Report ---
History of Present Illness General Chief Complaint: Earache Present Illness HPI 54-year-old female with no significant past medical history here complaining of 2 days of left ear pain rating a 10 out of 10 with radiation to left throat. Has not taken medication for symptom relief. Denies any fever and chills, cough and congestion. Denies any recent travel. Is sitting comfortably with stable vital signs. Denies any headache and dizziness, denies vertigo, tinnitus , and no bony tenderness noted over mastoid process Allergies: Coded Allergies: CODEINE (Verified Allergy, Unknown, vomiting, 02/17/16) Patient History Past Medical History: see triage record Past Surgical History: none Pertinent Family History: none Now: No Immunizations: UTD Reviewed Nursing Documentation: PMH: Agreed; PSxH: Agreed Review of Systems All Other Systems: negative except mentioned in HPI Physical Exam Vital Signs Date Time Temp Pulse Resp B/P (MAP) Pulse Ox O2 Delivery O2 Flow Rate FiO2 04/06/19 18:05 97.9 63 20 132/76 (94) 96 Room Air Sp02 EP Interpretation: reviewed, normal General Appearance: no apparent distress, alert, GCS 15, non-toxic Head: normocephalic, atraumatic Eyes: bilateral eye normal inspection, bilateral eye PERRL ENT: EOM grossly intact, normal voice, moist mucus membranes, other - Left TM bulging Neck: full range of motion, no meningismus, no bony tend, supple/symm/no masses , other - Left-sided anterior cervical lymphadenopathy Respiratory: chest non-tender, lungs clear, normal breath sounds, no rhonchi, no respiratory distress, no retraction, no wheezing, speaking full sentences Cardiovascular #1: regular rate, rhythm, no edema, no murmur, normal capillary refill Cardiovascular #2: 2+ carotid (R), 2+ carotid (L) Gastrointestinal: normal bowel sounds, non tender, soft, non-distended, no guarding, no rebound Rectal: deferred Musculoskeletal: back normal Neurologic: alert, motor strength/tone normal, oriented x3, sensory intact, responsive, speech normal Psychiatric: judgement/insight normal, memory normal, mood/affect normal, no suicidal/homicidal ideation Skin: no rash Lymphatic: adenopathy - Left-sided anterior cervical lymphadenopathy Medical Decision Making PA Attestation All my diagnosis and treatment plans were reviewed ad discussed with my supervising physician Dr. Lugo Diagnostic Impression: Primary Impression: Otitis media ER Course 54-year-old female with no significant past medical history here complaining of 2 days of left ear pain rating a 10 out of 10 with radiation to left throat. Has not taken medication for symptom relief. Denies any fever and chills, cough and congestion. Denies any recent travel. Is sitting comfortably with stable vital signs. Denies any headache and dizziness, denies vertigo, tinnitus , and no bony tenderness noted over mastoid process Ddx considered but are not limited to: strep pharyngitis, URI, tonsillitis, peritonsillar abscess, influenza, otitis media, otitis externa, mastoiditis Vital signs: are WNL, pt. is afebrile H&PE are most consistent with: Left-sided otitis media without mastoiditis ORDERS: Cefdinir as patient reports that does not want any amoxicillin, ibuprofen ED INTERVENTIONS: None required at this time. DISCHARGE: At this time pt. is stable for d/c to home. Will provide printed patient care instructions, and any necessary prescriptions. Care plan and follow up instructions have been discussed with the patient prior to discharge. Patient to follow primary doctor for referral to ear nose throat doctor as it is not very usual for an adult her age have otitis media. I did not believe that she has any mastoiditis at this time however advised to return to the emergency room with worsening pain and spreading of pain and inflammation and fever and chills. Last Vital Signs Date Time Temp Pulse Resp B/P (MAP) Pulse Ox O2 Delivery O2 Flow Rate FiO2 04/06/19 18:05 97.9 63 20 132/76 (94) 96 Room Air Disposition: HOME, SELF-CARE Condition: Stable Scripts Ibuprofen* (MOTRIN*) 600 Mg Tablet 600 MG ORAL Q6H PRN for For Pain, #30 TAB 0 Refills Prov: Keily Vigil 04/06/19 Cefdinir (CEFDINIR) 300 Mg Capsule 300 MG PO BID for 10 Days, #20 CAP Prov: Keily Vigil PA 04/06/19 Patient Instructions: Otitis Media, Adult, [id number] Additional Instructions: Take medication as directed, follow-up with your primary care doctor for referral to ear nose throat doctor, if worsening symptoms return to the emergency room. At this time no signs of mastoiditis noted. Keily Vigil Apr 06, 2019 18:31
[2019-04-06] MEDS ORDERED: IBUPROFEN600 MG ORAL (18:33)
[2019-04-06] MEDS ORDERED: CEFDINIR300 MG PO (18:33)
[2019-04-06 18:50] VITALS: BP 124/76
== END 2019-04-06 18:50 | disposition home or self-care (01) ==
LOC: EMR 18:46
DX: H66.92 Otitis media, unspecified, left ear (principal); Z88.6 Allergy status to analgesic agent
CPT/HCPCS: 99282

== ENCOUNTER 2019-06-29 21:09 | Emergency (ER) | payer OTHER ==
[~2019-06-29] VITALS: Ht 157.5 cm; Wt 77.1 kg
[~2019-06-29 21:09] MED LIST changes: +CEFDINIR300 MG PO
[2019-06-29 21:20] VITALS: BP 136/68
--- NOTE | 2019-06-29 21:20 | NUR ---
ED Nurse Note: PT WALKED IN C/O BURNING SENSATION IN THE VAGINAL AREA AFTER APPLYING NAIRS AT 1999. PT STATES BURNING WHEN URINATING. VSS, NAD, AMBULATORY, AAOX4. ERMD AT BEDSIDE. REDNESS NOTED IN VAGINAL AREA UPON EXAMINATION BY DR SANTOS WITH JASON BLACKMON.
--- NOTE | 2019-06-29 21:25 | NUR ---
ED Nurse Note: URINE COLLECTED AND SENT TO LAB
--- NOTE | 2019-06-29 21:33 | Emergency Room Report ---
History of Present Illness General Chief Complaint: Female Urogenital Problems Source: Patient Present Illness HPI Disclaimer: Please note that this report is being documented using DRAGON technology. This can lead to erroneous entry secondary to incorrect interpretation by the dictating instrument. HPI: 54-year-old female presents for evaluation of vaginal irritation. The patient was applying a chemical hair removal agent to her vaginal area and noted significant pain, burning and erythema. She thinks the skin was severely irritated. She rinsed copiously with water. Reported persistent burning. Denied any discharge, significant bleeding, dysuria hematuria prior to application of the chemical hair remover. Allergies: Coded Allergies: CODEINE (Verified Allergy, Unknown, vomiting, 02/17/16) COVID-19 Screening Contact w/high risk pt: No Recent Travel to affected area: No Experienced COVID-19 symptoms?: No COVID-19 Testing performed CAP PARTS CUTTER: No Patient History Last Menstrual Period: na Review of Systems All Other Systems: negative except mentioned in HPI Physical Exam Vital Signs Date Time Temp Pulse Resp B/P (MAP) Pulse Ox O2 Delivery O2 Flow Rate FiO2 06/29/19 21:15 97.7 90 16 130/77 (94) 97 Room Air General: Awake and alert, no acute distress HEENT: NC/AT. EOMI. Resp: Normal work of breathing : Normal-appearing external genitalia. Erythema and tenderness palpation around the inguinal folds and gluteal folds. No blistering, no skin sloughing, negative Nikolsky. No significant erythema over the labia majora. No vaginal discharge. Skin: Intact. No abrasions, laceration or rash over the exposed skin MSK: Normal tone and bulk. Moving all extremities. No obvious deformity. Neuro: Awake and alert. Mentating appropriately Medical Decision Making Diagnostic Impression: Primary Impression: First degree burn of female genitalia Additional Impression: Chemical burn of female genital region ER Course Is a 54-year-old female presenting for evaluation of vaginal irritation after applying a chemical hair removal agent. Patient irrigated prior to arrival in the emergency department. Appears she has a first-degree burn from the chemical exposure but no blistering, signs of infection or burn to the deeper skin is identified. Will apply Silvadene and treat with oral pain medications. Patient will follow-up on an outpatient basis with PMD. We discussed reasons to return to the emergency department. She understands and agrees with treatment plan. Last Vital Signs Date Time Temp Pulse Resp B/P (MAP) Pulse Ox O2 Delivery O2 Flow Rate FiO2 06/29/19 21:15 97.7 90 16 130/77 (94) 97 Room Air Disposition: HOME, SELF-CARE Condition: Stable Scripts Silver Sulfadiazine (SILVER SULFADIAZINE) 50 Gm Cream..g. 5 GM TP BID, #50 GM Prov: Flavio Walter MD 06/29/19 Flavio Walter MD June 29, 2019 21:33
[2019-06-29] MEDS ORDERED: SILVER SULFADIA50 GM TP (21:46)
[2019-06-29 21:55] VITALS: BP 133/68
== END 2019-06-29 21:55 | disposition home or self-care (01) ==
LOC: EMR 21:35
DX: T21.5 Corrosion of first degree of trunk (principal); Y92.9 Unspecified place or not applicable; Z88.6 Allergy status to analgesic agent
CPT/HCPCS: 99282

== ENCOUNTER 2019-12-26 16:26 | Emergency (ER) | payer OTHER ==
[~2019-12-26] VITALS: Ht 167.6 cm; Wt 79.4 kg
[~2019-12-26 16:26] MED LIST changes: +SILVER SULFADIA50 GM TP
--- NOTE | 2019-12-26 17:05 | NUR ---
ED Nurse Note: Pt walked in from home c/o mouth pain that travels to left ear down left arm since yesterday. Respirations even and unlabored on room air. Vitals stable as documented. A+Ox4, speaking in complete sentences.
[2019-12-26 17:10] VITALS: BP 126/79
--- NOTE | 2019-12-26 17:16 | Emergency Room Report ---
History of Present Illness General Chief Complaint: Earache Source: Patient Present Illness HPI 54-year-old female with history of chronic shoulder pain but has already had MRI and follow-up with primary doctor and recurrences of otitis media here complaining of 2 days of left ear pain reported that is exacerbating left shoulder pain. Patient has been taking Advil with minimal relief. Is requesting capsule antibiotics for a year. Denies any fever chills, sore throat, cough and congestion. Denies any water exposure., Denies tinnitus, vertigo, dizziness, headache. Allergies: Coded Allergies: CODEINE (Verified Allergy, Unknown, vomiting, 02/17/16) COVID-19 Screening Contact w/high risk pt: No Recent Travel to affected area: No Experienced COVID-19 symptoms?: No COVID-19 Testing performed FLAME BURNER: No COVID-19 Screening: Negative COVID-19 COVID-19 Testing Source: 3 months ago Patient History Past Medical History: see triage record Past Surgical History: none Pertinent Family History: none Now: No Immunizations: UTD Reviewed Nursing Documentation: PMH: Agreed; PSxH: Agreed Nursing Documentation-PMH Past Medical History: No History, Except For Review of Systems All Other Systems: negative except mentioned in HPI Physical Exam Vital Signs Date Time Temp Pulse Resp B/P (MAP) Pulse Ox O2 Delivery O2 Flow Rate FiO2 12/26/19 16:46 98.2 70 18 122/73 (89) 95 Room Air Sp02 EP Interpretation: reviewed, normal General Appearance: no apparent distress, alert, GCS 15, non-toxic Head: normocephalic, atraumatic Eyes: bilateral eye normal inspection, bilateral eye PERRL ENT: other - Erythema left ear canal and TM bulging Neck: full range of motion, supple/symm/no masses Respiratory: chest non-tender, lungs clear, normal breath sounds, speaking full sentences Cardiovascular #1: regular rate, rhythm, no edema Cardiovascular #2: 2+ carotid (R), 2+ carotid (L), 2+ radial (R), 2+ radial (L), 2+ dorsalis pedis (R), 2+ dorsalis pedis (L) Gastrointestinal: normal bowel sounds, non tender, soft, non-distended, no guarding, no rebound Genitourinary: no CVA tenderness Musculoskeletal: back normal, no lower extremity edema, non-tender, other - N eurovascularly intact, no impingement sign noted Neurologic: alert, motor strength/tone normal, oriented x3, sensory intact, responsive, speech normal Psychiatric: judgement/insight normal, memory normal, mood/affect normal, no suicidal/homicidal ideation Skin: no rash Lymphatic: no adenopathy Medical Decision Making PA Attestation All diagnoses and treatment plans were reviewed and discussed with my supervising physician Dr. Walter Diagnostic Impression: Primary Impression: Otitis media Additional Impression: Shoulder tendonitis ER Course 54-year-old female with history of chronic shoulder pain but has already had MRI and follow-up with primary doctor and recurrences of otitis media here complaining of 2 days of left ear pain reported that is exacerbating left shoulder pain. Patient has been taking Advil with minimal relief. Is requesting capsule antibiotics for a year. Denies any fever chills, sore throat, cough and congestion. Denies any water exposure., Denies tinnitus, vertigo, dizziness, headache. Ddx considered but are not limited to : Shoulder sprain versus tendinitis versus tendon tear, otitis media versus otitis externa Vital signs: are WNL, pt. is afebrile H&PE are most consistent with: Left ear otitis media, chronic tendinitis of left shoulder ORDERS: No x-ray necessary at this time patient has had multiple imaging done in the past cefdinir, Motrin, Robaxin, Voltaren gel ED INTERVENTIONS: none DISCHARGE: At this time pt. is stable for d/c to home. Will provide printed patient care instructions, and any necessary prescriptions. Care plan and follow up instructions have been discussed with the patient prior to discharge. Advised patient to follow primary care provider referral to physical therapy, also follow-up with primary doctor regarding ENT referral, if worsening symptoms return to emergency Last Vital Signs Date Time Temp Pulse Resp B/P (MAP) Pulse Ox O2 Delivery O2 Flow Rate FiO2 12/26/19 16:46 98.2 70 18 122/73 (89) 95 Room Air Disposition: HOME, SELF-CARE Condition: Stable Scripts Diclofenac Sodium (VOLTAREN) 100 Gm Gel..gram. 2 GM TP TID, #100 GM Prov: Keily Vigil 12/26/19 Methocarbamol* (ROBAXIN-500*) 500 Mg Tablet 500 MG ORAL TID PRN for For Pain, #15 TAB 0 Refills Prov: Keily Vigil 12/26/19 Ibuprofen* (MOTRIN*) 600 Mg Tablet 600 MG ORAL Q6H PRN for For Pain, #30 TAB 0 Refills Prov: Keily Vigil 12/26/19 Cefdinir (CEFDINIR) 300 Mg Capsule 300 MG PO BID for 10 Days, #20 CAP Prov: Keily Vigil 12/26/19 Patient Instructions: Bicipital Tendonitis, Otitis Media, Adult, [id number] Additional Instructions: Take medication as directed, follow-up with ENT, also follow-up primary doctor regarding your chronic tendinitis for possibility of tendon tear and further evaluation, and physical therapy. If worsening symptoms return to the emergency room Keily Vigil Dec 26, 2019 17:16
[2019-12-26] MEDS ORDERED: VOLTAREN100 G1 TP (17:26)
[2019-12-26] MEDS ORDERED: ROBAXIN-500MG ORAL (17:26)
[2019-12-26] MEDS ORDERED: IBUPROFEN600 M1 ORAL (17:26)
[2019-12-26] MEDS ORDERED: CEFDINIR300 MG PO (17:26)
[2019-12-26 18:15] VITALS: BP 131/72
--- NOTE | 2019-12-26 18:15 | NUR ---
ED Nurse Note: Pt cleared by health care Provider for discharge. DC instructions/prescription were given and explained to pt and verbalized understanding of teachings. All medical devices such as ID band removed. Pt is AAO x4, ambulatory and left with all personal belongings.
== END 2019-12-26 18:15 | disposition home or self-care (01) ==
LOC: EMR 18:05
DX: H66.92 Otitis media, unspecified, left ear (principal); M77.8 Other enthesopathies, not elsewhere classified; Z88.5 Allergy status to narcotic agent
CPT/HCPCS: 99282